=== PATIENT | male | born 1960 | race Caucasian/White ===

== ENCOUNTER 2022-10-31 12:22 | Emergency (ER) | payer OTHER ==
[~2022-10-31] VITALS: Ht 177.8 cm; Wt 89.0 kg
[2022-10-31 12:32] VITALS: BP 121/81
[2022-10-31] MEDS ORDERED: APIX5TAB MT (21:16)
== END 2022-10-31 21:22 | disposition home or self-care (01) ==
LOC: ER 12:22
DX: I82.432 Acute embolism and thrombosis of left popliteal vein (principal); I10 Essential (primary) hypertension; E78.00 Pure hypercholesterolemia, unspecified; Z98.890 Other specified postprocedural states
CPT/HCPCS: 93971; 99284